=== PATIENT | female | born 1985 | race Caucasian/White ===

== ENCOUNTER 2020-05-11 09:45 | Day surgery (SDC) | payer BC ==
[~2020-05-11] VITALS: Ht 162.6 cm; Wt 124.5 kg
[~2020-05-11 09:45] MED LIST: ACET500; ALBIPROI INH; ALBU90OI INH; AMOX500 PO; CODGUAEL PO; CYCL10 PO; Crutch1 EACH MISC; DOC250 PO; ENOX120I; ESCI5 PO; FEXO180 PO; FISH OIL 1,0001 EAC1 PO; FISH OIL 1,0001 EAC7 PO; FLONASE ALLERG9.9 ML; HYDACE5; HYDACE5 PO; HYDGUAL120 PO; IBUP600 PO; IBUP800; IBUP800 PO; LORA1SY PO; MULTIVITAMINS1 EAC3 PO; NICO14TP TOP; Norco 5-325 Ta1 EACH PO; OMEP20ER PO; OXYACE5T PO; Prilosec Otc20 MG; RXOXYACE PO; SPACER IH; WARF10; WARF10 PO; WARF7.5 PO
== END 2020-05-11 11:18 | disposition home or self-care (01) ==
LOC: ORSCSDS 09:45
PROVIDERS: Internal Medicine Gastroenterology
PROC: 0DB68ZX Excision of Stomach, Via Natural or Artificial Opening Endoscopic, Diagnostic (ICD-10-PCS; principal; 2020-05-11 11:00)
DX: Z01.818 Encounter for other preprocedural examination (principal); K29.70 Gastritis, unspecified, without bleeding; K76.0 Fatty (change of) liver, not elsewhere classified; Z87.891 Personal history of nicotine dependence; E66.01 Morbid (severe) obesity due to excess calories; Z68.42 Body mass index [BMI] 45.0-49.9, adult; Z79.01 Long term (current) use of anticoagulants; Z79.899 Other long term (current) drug therapy
CPT/HCPCS: 88305; 88342; J2704; J7120

== ENCOUNTER 2022-04-26 12:16 | Emergency (ER) | payer BC ==
[~2022-04-26] VITALS: Ht 162.6 cm; Wt 120.7 kg
== END 2022-04-26 12:42 | disposition home or self-care (01) ==
LOC: ER 12:16
DX: U07.1 COVID-19 (principal); Z88.6 Allergy status to analgesic agent; Z88.1 Allergy status to other antibiotic agents; Z91.012 Allergy to eggs; Z91.018 Allergy to other foods; Z79.01 Long term (current) use of anticoagulants; Z79.899 Other long term (current) drug therapy; Z87.891 Personal history of nicotine dependence
CPT/HCPCS: 99282